=== PATIENT | male | born 1960 | race Caucasian/White ===

== ENCOUNTER 2021-06-09 23:02 | Emergency (ER) | payer SELFPAY ==
[~2021-06-09 23:02] MED LIST: CYCLOBENZAPRINE10 MG PO; ROBAXIN 750 MG750 MG PO
[2021-06-10 01:03] LABS: RED BLOOD COUNT 5.4 M/UL (4.20-5.50); WHITE BLOOD COUNT 4.6 K/UL (4.5-11.0)
[2021-06-10 01:48] LABS: BUN/CREATININE RATIO 15 (0-10)
== END 2021-06-10 06:13 | disposition home or self-care (01) ==
LOC: ER1 23:02
PROVIDERS: Physician Assistant
DX: M85.672 Other cyst of bone, left ankle and foot (principal); R53.83 Other fatigue; I11.0 Hypertensive heart disease with heart failure; I50.9 Heart failure, unspecified; Z20.822 Contact with and (suspected) exposure to COVID-19
CPT/HCPCS: 0240U; 71045; 80053; 80307; 81001; 82550; 82553; 83880; 84484; 85025; 85610; 85730; 87086; 93005; 99284; Q9967